=== PATIENT | female | born 1945 | race Caucasian/White ===

== ENCOUNTER → 2023-10-11 08:59 | Outpatient (REF) | payer MEDICARE, BC, SELFPAY ==
[2023-10-11 10:20] LABS: % Basophils 1.1 % (0-2); % Eosinophils 2.7 % (0-6); % Immature Granulocytes 1.9 % (0-0.5); % Lymphocytes 21.8 % (20.5-51.1); % Monocytes 7.3 % (1.7-9.3); % Neutrophils 65.2 % (42.2-75.2); Absolute Basophils 0.1 10^3/uL (0-0.2); Absolute Eosinophils 0.2 10^3/uL (0-0.7); Absolute Immature Granulocytes 0.1 10^3/uL (0-0.05); Absolute Lymphocytes 1.4 10^3/uL (1.2-3.4); Absolute Monocytes 0.5 10^3/uL (0.1-0.6); Absolute Neutrophils 4.2 10^3/uL (1.4-6.5); Hematocrit 43.1 % (37.0-47.0); Hemoglobin 14.7 g/dL (12.0-16.0); Mean Corp Hgb Conc. 34.1 g/dL (33.0-37.0); Mean Corpuscular Hgb 32.2 pg (27.0-31.0); Mean Corpuscular Volume 94.5 fL (81.0-99.0); Mean Platelet Volume 10.1 fL (7.4-10.4); Nucleated Red Blood Cells % 0 %; Platelet Count 220 10^3/uL (130-400); Red Blood Cell Count 4.56 10^6/uL (4.20-5.40); Red Cell Dist. Width 13.3 % (11.5-14.5); White Blood Cell Count 6.4 10^3/uL (4.8-10.8)
[2023-10-11 11:00] LABS: Blood Urea Nitrogen 19 mg/dl (7-17); Calcium 9.9 mg/dl (8.4-10.2); Carbon Dioxide 24 mmol/L (22-30); Chloride 102 mmol/L (98-107); Glucose 94 mg/dl (70-99); Potassium 4.6 mmol/L (3.5-5.1); Sodium 136 mmol/L (135-145); eGFR > 60.00
== END ==
LOC: SDSPAT 08:59
PROVIDERS: ATTENDING PHYSICIAN Orthopaedic Surgery Hand Surgery; FAMILY PHYSICIAN Family Medicine
DX: Z01.818 Encounter for other preprocedural examination (principal)
CPT/HCPCS: 36415; 80048; 85025; 93005

== ENCOUNTER 2023-11-07 06:43 | Day surgery (SDC) | payer MEDICARE, BC, SELFPAY ==
[2023-10-11 12:25] VITALS: BMI 24.1
--- NOTE | 2023-10-12 08:46 | PTCARENOTE ---
Abnormal ECG reviewed by Dr. Rogel, no further instruction required at this time.
--- NOTE | 2023-10-12 15:51 | PTCARENOTE ---
Abnormal EKG ok per Dr. Mercer.
[2023-11-07] VITALS (9 sets, daily range): BP systolic 105–175; BP diastolic 79–98; BMI 24.1
[2023-11-07] MEDS: TYLENOL 1000 MG PO (09:26)
[2023-11-07] MEDS: MOBIC 15 MG PO (09:26)
[2023-11-07] MEDS: NORMOSOL-R 1000 IV (09:36)
[2023-11-07] MEDS: ZOFRAN 4 MG IV (12:38)
--- NOTE | 2023-11-07 13:27 | SUR.PHASEI ---
comfortable in pacu, nausea has passed, vss, no pain,
== END 2023-11-07 14:30 | disposition home or self-care (01) ==
LOC: SDS 06:43
PROVIDERS: ATTENDING PHYSICIAN Orthopaedic Surgery Hand Surgery; FAMILY PHYSICIAN Family Medicine
DX: M75.121 Complete rotator cuff tear or rupture of right shoulder, not specified as traumatic (principal); M75.41 Impingement syndrome of right shoulder
CPT/HCPCS: 29827; 29826; C1713

== ENCOUNTER → 2025-05-15 09:56 | Outpatient (REF) | payer OTHER, SELFPAY ==
[2025-05-15 12:19] LABS: Microalb - Urine Creatinine 101.500 mg/dl
[2025-05-15 12:22] LABS: Microalbumin, Random Urine 0.8 mg/dl (0.6-1.7)
[2025-05-15 12:29] LABS: Blood Urea Nitrogen 19 mg/dl (7-17); Calcium 10.2 mg/dl (8.4-10.2); Carbon Dioxide 26 mmol/L (22-30); Chloride 103 mmol/L (98-107); Glucose 99 mg/dl (70-99); Potassium 4.6 mmol/L (3.5-5.1); Sodium 136 mmol/L (135-145); eGFR 57.66
== END ==
LOC: HWLAB 09:56
PROVIDERS: ATTENDING PHYSICIAN Specialist; FAMILY PHYSICIAN Family Medicine
DX: E21.0 Primary hyperparathyroidism (principal); I10 Essential (primary) hypertension
CPT/HCPCS: 36415; 80048; 82043; 82570; 83970